=== PATIENT | male | born 1960 | race Caucasian/White ===

== ENCOUNTER 2023-11-21 17:47 | Emergency (ER) | payer OTHER ==
[2023-11-21 17:55] VITALS: RESP 20; TEMP 97.8; BMI 23.6
[2023-11-21 19:10] LABS: URINE APPEARANCE CLEAR; URINE BILIRUBIN NEGATIVE (NEGATIVE); URINE COLOR YELLOW; URINE GLUCOSE (UA) NEGATIVE (NEGATIVE); URINE KETONE TRACE (NEGATIVE); URINE LEUK ESTERASE NEGATIVE (NEGATIVE); URINE NITRITE NEGATIVE (NEGATIVE); URINE PROTEIN NEGATIVE (NEGATIVE); URINE UROBILINOGEN 0.2 mg/dL (0.2-1.0)
[2023-11-21 19:48] VITALS: BP 140/90; PULSE 88
[2023-11-21 19:51] LABS: BASO % 0.3 % (0-2.0); EOS % 1.3 % (0-4.5); HEMATOCRIT 42.8 % (35.4-49); HEMOGLOBIN 14.1 GM/dL (11.7-16.9); LYMPH % 7.2 % (8-40); MEAN PLT VOLUME 8.2 fl (7.5-11.1); MONO % 6.7 % (3.8-10.2); NEUT % 84.5 % (42.8-82.8); PLATELET COUNT 213 10^3/uL (134-434); RBC 4.41 M/mm3 (4.00-5.60); RDW 13.3 % (11.9-15.9)
[2023-11-21 20:45] LABS: ALBUMIN 4.4 g/dl (3.4-5.0)
[2023-11-21 20:46] LABS: BLOOD UREA NITROGEN 24.4 mg/dL (7-18)
[2023-11-21 20:49] LABS: CREATININE 1.4 mg/dL (0.55-1.3)
[2023-11-21 20:50] LABS: BILIRUBIN,TOTAL 0.6 mg/dL (0.2-1); TOT PROT 7.4 g/dl (6.4-8.2)
== END 2023-11-21 22:02 | disposition home or self-care (01) ==
LOC: JER 17:47
DX: R33.9 Retention of urine, unspecified (principal); R10.30 Lower abdominal pain, unspecified
CPT/HCPCS: 36415; 76856-TC; 80053; 81003; 85025; 87086; 99284-25